=== PATIENT | male | born 1975 | race Caucasian/White ===

== ENCOUNTER 2018-01-31 09:02 | Day surgery (SDC) | payer OTHER ==
[~2018-01-31 09:02] MED LIST: BUPIVACAINE 0.25% (MPF) 30 ML INJ; CEFAZOLIN 1 GM/50 ML (PMX) 50 ML IVPB; SOD CHLORIDE 0.9% 1,000 ML IV
[2018-01-31 10:19] LABS: ADD MAN DIFF? NO
[2018-01-31 10:22] LABS: BASOPHILS % 0.6 % (0.0-2.0); EOSINOPHILS # 0.1 10^3/ul (0.0-0.5); EOSINOPHILS % 1.7 % (0.0-7.0); HEMATOCRIT 37.3 % (42.0-52.0); HEMOGLOBIN 12.6 g/dl (14.0-18.0); LYMPHOCYTES # 1.6 10^3/ul (0.8-2.9); LYMPHOCYTES % 29.8 % (15.0-51.0); MEAN CORPUSCULAR HGB CONC 33.8 g/dl (32.0-37.0); MEAN CORPUSCULAR VOLUME 85.7 fl (82.0-101.0); MEAN PLATELET VOLUME 10.9 fl (7.4-10.4); MONOCYTE # 0.4 10^3/ul (0.3-0.9); MONOCYTES % 8.1 % (0.0-11.0); NEUTROPHIL # 3.2 10^3/ul (1.6-7.5); NEUTROPHILS % 59.4 % (39.0-77.0); PLATELET COUNT 243 10^3/UL (140-415); RED BLOOD COUNT 4.35 10^6/ul (4.70-6.10)
[2018-01-31 10:22] LABS: WHITE BLOOD COUNT 5.4 10^3/ul (4.8-10.8)
[2018-01-31 10:38] LABS: ALANINE AMINOTRANSFERASE 16 IU/L (13-69); ALBUMIN/GLOBULIN RATIO 1.17; ALKALINE PHOSPHATASE 71 IU/L (42-121); ANION GAP 13 (8-16); ASPARTATE AMINO TRANSFERASE 22 IU/L (15-46); BILIRUBIN,INDIRECT 0.6 mg/dl (0-1.1); BILIRUBIN,TOTAL 0.6 mg/dl (0.2-1.3); BLOOD UREA NITROGEN 17 mg/dl (7-20); CALCIUM 9.1 mg/dl (8.4-10.2); CARBON DIOXIDE 29 mmol/L (21-31); CHLORIDE 103 mmol/L (97-110); CREATININE 0.79 mg/dl (0.61-1.24); GLUCOSE 91 mg/dl (70-220); POTASSIUM 4.3 mmol/L (3.5-5.1); SODIUM 141 mmol/L (135-144); TOTAL PROTEIN 7.4 g/dl (6.1-8.1)
[2018-01-31 10:40] LABS: PROTIME 12.2 Sec (11.9-14.9)
[2018-01-31 10:41] LABS: PARTIAL THROMBOPLASTIN TIME 28.7 Sec (25.0-35.0)
[2018-01-31] MEDS ORDERED: METOCLOPRAMIDE 10 MG INJ (11:25)
[2018-01-31] MEDS ORDERED: MIDAZOLAM 1 MG/ML 2 ML INJ (11:25)
[2018-01-31] MEDS ORDERED: ROPIVACAINE 0.2% 20 ML VIAL (11:25)
[2018-01-31] MEDS ORDERED: ONDANSETRON 4 MG INJ (11:25)
[2018-01-31] MEDS ORDERED: CEFAZOLIN 2 GM/50 ML (PMX) 50 ML IVPB (11:30)
[2018-01-31] MEDS ORDERED: SOD CHLORIDE 0.9% 1,000 ML IV (11:30)
[2018-01-31] MEDS ORDERED: ACETAMINOPHEN 1000MG/100ML IV 0 ML (11:34)
[2018-01-31] MEDS ORDERED: GLYCOPYRROLATE 1 MG INJ (11:34)
[2018-01-31] MEDS ORDERED: PROPOFOL 20 ML (11:34)
[2018-01-31] MEDS ORDERED: NEOSTIGMINE 3 MG/3 ML SYRINGE (11:34)
[2018-01-31] MEDS ORDERED: KETOROLAC 30 MG INJ (11:34)
[2018-01-31] MEDS ORDERED: ROCURONIUM 50 MG INJ (11:34)
[2018-01-31] MEDS ORDERED: CEFAZOLIN 1 GM INJ (11:54)
[2018-01-31] MEDS: POLYMYXIN/BACITRACIN 1L IRRIG IRR (12:21)
[2018-01-31] MEDS ORDERED: DIPHENHYDRAMINE 50 MG INJ IV (12:30)
[2018-01-31] MEDS ORDERED: MIDAZOLAM 1 MG/ML 2 ML INJ IV (12:30)
[2018-01-31] MEDS ORDERED: MEPERIDINE 25 MG INJ IV (12:30)
[2018-01-31] MEDS: POLYMYXIN/BACITRACIN 1L IRRIG (12:54)
[2018-01-31] MEDS: HYDROmorphONE 1 MG/5 ML IV SYRINGE IV ×5 (12:55→13:17)
[2018-01-31] MEDS: ONDANSETRON 4 MG INJ IV (12:57)
[2018-01-31] MEDS: HYDROCODONE/APAP (5/325) TAB PO (13:14)
[2018-01-31] MEDS: OXYCODONE/ACETAMINOPHEN (5/325) TAB PO (14:37)
== END 2018-01-31 15:00 | disposition home or self-care (01) ==
LOC: SDS 09:02
DX: K40.30 Unilateral inguinal hernia, with obstruction, without gangrene, not specified as recurrent (principal)
CPT/HCPCS: 49507; 80053; 85025; 85610; 85730; 88302; 93005